=== PATIENT | female | born 1990 | race Caucasian/White ===

== ENCOUNTER 2021-10-06 11:32 | Emergency (ER) | payer OTHER ==
[2021-10-06 13:06] LABS: BASOPHIL 0.2 % (0-2); EOSINOPHIL 0.2 % (0-5); HGB 10.6 g/dl (12.5-16.0); LYMPHOCYTE 4.6 % (15-48); MCH 26.8 pg (25.0-31.0); MCHC 32.1 g/dL (32.0-36.0); MCV 83.5 fL (78.0-100.0); MONOCYTE 6.5 % (0-12); MPV 8.6 fL (6.0-9.5); NEUTROPHIL 87.8 % (41-80); NRBC 0; PLT 381 K/uL (150-400); RBC 3.95 M/uL (4.20-5.40); RDW 12.9 % (11.5-14.0); WBC 21.8 K/uL (4.0-10.5)
[2021-10-06 13:23] LABS: BUN/CREAT RATIO (CALC) 9.8 RATIO; CREATININE 0.82 mg/dL (0.51-0.95); POTASSIUM 3.6 mmol/L (3.5-5.1)
[2021-10-06] MEDS ORDERED: NORCO 5-325 TA1 EACH PO ×2 (14:24→14:25)
[2021-10-06] MEDS ORDERED: BACTRIM DS TAB1 EACH PO ×2 (14:24→14:25)
[2021-10-06] MEDS ORDERED: METRONIDAZOLE500 MG PO ×2 (14:24→14:25)
== END 2021-10-06 14:47 | disposition home or self-care (01) ==
LOC: FER 11:32
PROVIDERS: Nurse Practitioner Family
DX: L02.31 Cutaneous abscess of buttock (principal); Z88.0 Allergy status to penicillin
CPT/HCPCS: 36415; 80048; 83605; 85025; 87070; 87077; 87186; 87205; 96374; J1885; J7030